=== PATIENT | female | born 1930 | race Caucasian/White ===

== ENCOUNTER 2016-09-24 05:48 | Day surgery (SDC) | payer MEDICARE, MEDICAID ==
--- NOTE | 2016-09-21 10:32 | RAD ---
EXAM DESCRIPTION: Chest,2 Views CLINICAL HISTORY: 85 years Female, Surgery on Saturday COMPARISON: 11 June 2014 TECHNIQUE: PA/lateral FINDINGS: The dorsal cord stimulators observed in place. A large height is hernia is observed. Cardiomegaly is evident. The lungs are clear. No pleural fluid is seen. Compression of one of the mid thoracic vertebral bodies is observed. It has occurred since the previous exam. IMPRESSION: 1. A large hiatus hernia is observed. 2. Cardiomegaly is observed without evidence of congestive heart failure. 3. Interval collapse of one of the mid thoracic vertebral bodies is observed. Electronically signed by: Sonny Constantino MD 09/21/2016 10:30 AM CDT
[2016-09-24] MEDS ORDERED: BUPIVACAINE 0.25% W/EPI 50 ML VIAL INJ ONE (07:12)
[2016-09-24] MEDS ORDERED: HEPARIN SODIUM (PORCINE) 10,000 UNITS/ML VIAL ONE (07:12)
[2016-09-24] MEDS ORDERED: ceFAZolin SODIUM 1 GM VIAL ONE (07:27)
[2016-09-24] MEDS ORDERED: SODIUM CHL 0.9% 100ML MINI-BAG 100 ML IVPB ONE (07:27)
[2016-09-24] MEDS ORDERED: LACTATED RINGERS 1,000 ML ONE (07:27)
[2016-09-24] MEDS ORDERED: ROCURONIUM BROMIDE 10 MG/ML VIAL ONE (08:23)
[2016-09-24] MEDS ORDERED: fentaNYL CITRATE INJ 50 MCG/ML AMP ONE (08:23)
[2016-09-24] MEDS ORDERED: HYDROmorphone HCL INJ 2 MG/ML VIAL ONE (09:21)
[2016-09-24] MEDS ORDERED: HYDROcodone 7.5MG/APAP 325MG 1 EA TAB ONE (11:07)
--- NOTE | 2016-09-24 11:51 | OP ---
DATE OF PROCEDURE: 09/24/16 PREOPERATIVE DIAGNOSIS: 1. Symptomatic cholelithiasis with possible choledocholithiasis, nonobstructing. POSTOPERATIVE DIAGNOSIS: 1. Symptomatic cholelithiasis with possible choledocholithiasis, nonobstructing. 2. Chronic cholecystitis. PROCEDURE: 1. Laparoscopic cholecystectomy with intraoperative cholangiography. SURGEON: Emir Alvarez MD. [employer]ISH[employer] DEPARTMENT: None. ANESTHESIA: Local infiltration of 0.25% Marcaine with epinephrine and general endotracheal anesthesia. INDICATION: The patient is an 85-year-old female who has a history of back pain on the right, nausea, bloating. She has a diagnosis of cholelithiasis, dilated common bile duct and possible common bile duct stones with no elevation of liver function tests. The patient was brought to the Surgical [facility] today for cholecystectomy after the risks, benefits and alternatives to the procedure were discussed and accepted and she was unable to have an MRCP preoperatively due to a nerve stimulator in her back. FINDINGS: There was no significant obstruction from the common bile duct into the duodenum. The common bile duct was quite large, greater than 1 cm. No distinct stones were identified, however, the distal duct appeared only to have a small, thin opening without a definite meniscus anywhere in it. The cystic duct was small and the upper biliary field was within normal limits. There were also multiple adhesions in the right upper quadrant from the omentum to the anterior abdominal wall inferior to the liver and gallbladder. Also, the liver did appear to have maybe a small amount of fatty infiltration of the liver. DESCRIPTION OF PROCEDURE: After adequate general endotracheal anesthesia was obtained, the patient was prepped and draped in the usual sterile manner. Surgical time-out was taken. The infraumbilical area was infiltrated with local anesthesia. A curvilinear incision was fashioned with a sharp knife and dissection was carried down through the skin to the midline fascia using blunt dissection. Traction sutures were placed on either side of the midline. A small incision was made in the midline fascia and the peritoneum was opened bluntly. Dennis trocar was introduced under direct vision into the abdominal cavity and fixed in place with the 20 mL balloon. CO2 was then insufflated until a pressure of 12 mmHg was reached and the abdomen was tympanitic in all four quadrants. When this was done, the laparoscope was introduced. The abdomen was inspected with the previously noted findings. The patient was then placed in reverse Trendelenburg position, turned to the left side. The subxiphoid port was then inserted and using this, the adhesions in the right upper quadrant were taken down using electrocautery and sharp dissection. When this was done, the other upper abdominal ports were placed. The gallbladder was grasped, retracted anteriorly and laterally. The neck of the gallbladder was retracted laterally. The triangle of Calot was then explored with the cystic duct and cystic artery identified and isolated. The cystic duct was hemoclipped once proximally. The cystic artery was hemoclipped twice proximally and once distally. A small incision was made in the cystic duct. The cholangiogram catheter was introduced through a separate stab wound in the right upper quadrant, introduced into the cystic duct and clipped in place. Cholangiograms were then taken using fluoroscopy which revealed free flow into the duodenum with no obvious filling defect and significant flow into the duodenum. No other obvious pathology was identified. The cystic duct catheter was then removed. The cystic duct was hemoclipped three times distally and divided between the hemoclips. The cystic artery was divided. Another arterial vessel was identified and clipped, as was a small amount of venous bleeding along with the cystic artery and this was clipped. When this was done, the gallbladder was then dissected free from the gallbladder bed of the liver. Hemostasis was obtained with electrocautery. The gallbladder was then removed from the infraumbilical port site. When this was done, the subhepatic space and subphrenic space were irrigated copiously with saline. The effluent was noted to be clear. Hemostasis was noted to be within normal limits in the gallbladder bed of the liver. The greg hepatis was inspected and no bleeding or bile leak was identified. The upper abdominal ports were removed under direct vision and good hemostasis was noted. At this point, the CO2, the laparoscope and the infraumbilical port were removed. The infraumbilical port site fascia was approximated with a single [id number] suture of 0 Vicryl. Subcutaneous tissue was irrigated with saline. Skin edges were approximated with 4-0 Vicryl subcuticular sutures, benzoin and Steri- Strips. Sterile dressings were applied. The patient was awakened and taken to the Recovery Room in good and stable condition. Estimated blood loss was less than 50 mL. All sponge, needle and instrument counts were correct. #[id number] [facility]
[2016-09-24] MEDS ORDERED: ePHEDrine SULF 50 MG/ML IV ONE (12:00)
[2016-09-24] MEDS ORDERED: DEXAMETHASONE INJ 10 MG/ML VIAL IV ONE (12:00)
[2016-09-24] MEDS ORDERED: PROPOFOL 200 MG/20 ML VIAL IV ONE (12:00)
[2016-09-24] MEDS ORDERED: raNITIdine HCL INJ 25 MG/ML VIAL IV ONE (12:00)
[2016-09-24] MEDS ORDERED: LIDOCAINE 1% 10 ML VIAL INJ ONE (12:00)
[2016-09-24 13:07] VITALS: BP 158/67; TEMP 98.7; O2SAT 96
== END 2016-09-24 11:55 | disposition home or self-care (01) ==
LOC: AMB 05:48
PROVIDERS: ATTEND Surgery
DX: K80.12 Calculus of gallbladder with acute and chronic cholecystitis without obstruction (principal); I10 Essential (primary) hypertension; K21.9 Gastro-esophageal reflux disease without esophagitis; Z79.899 Other long term (current) drug therapy
CPT/HCPCS: 00790; 36415; 36416; 47563; 71020; 76000; 80053; 81001; 82948; 85025; 88304; 93005; J0690; J1100; J1170; J1644; J2780; J3010; J3490; J7050; J7120

== ENCOUNTER → 2019-03-25 | Outpatient (CLI) | payer MEDICARE, MEDICAID | LOC: GMAM 14:15 | PROVIDERS: ATTEND Family Medicine | DX: R11.0 Nausea (principal) ==